=== PATIENT | female | born 1930 | race Caucasian/White ===

== ENCOUNTER 2018-05-26 17:16 | Inpatient (IN) | payer OTHER ==
--- NOTE | 2018-05-26 18:08 | PDOC ---
History of Present Illness - General Chief Complaint: Shortness of Breath Stated Complaint: SHORTNESS OF BREATH Time Seen by Provider: 05/26/18 17:27 History Source: Patient, Longterm Records Exam Limitations: No Limitations - History of Present Illness Initial Comments: 05/26/18 18:03 Pt is an 87yo f with PMH of CHF, Afib on Coumadin, HTN, HLD, Sleep Apnea, edema BIBA from [facility] for SOB. Pt says she has been feeling SOB for more than one week. She feels SOB when she takes a few steps, but feels fine at rest. She also admits to decreased appetite and loose stools. She denies chest pain, cough , fever, chills, night sweats, back pain, headache, changes in vision, abominal pain, nausea, vomiting, urinary symptoms. She has had chronic leg swelling and pt noticed it is a bit more swollen. PMD: Yesenia PMH: See hpi PSH: R knee surgery Meds: Coumadin, lasix, see med rec Allergies: amox, cipro, oxycodone Past History - Past Medical History Allergies/Adverse Reactions: Allergies Allergy/AdvReac Type Severity Reaction Status Date / Time acetaminophen [From Percocet] Allergy Verified 05/26/18 17:38 amoxicillin Allergy Verified 05/26/18 17:38 ciprofloxacin [From Cipro] Allergy Verified 05/26/18 17:38 naproxen [From Naprosyn] Allergy Verified 05/26/18 17:38 oxycodone [From Percocet] Allergy Verified 05/26/18 17:38 Cardiac Disorders: Yes (ATRIAL FIBRILLATION) COPD: No CHF: Yes HTN: Yes Hypercholesterolemia: Yes Psychiatric Problems: Yes Thyroid Disease: Yes Other medical history: HYPOKALEMIA,DEPRESSION,OBSTRUCTIVE SLEEP APNEA - Suicide/Smoking/Psychosocial Hx Smoking History: Unknown if ever smoked Hx Alcohol Use: No Drug/Substance Use Hx: No Review of Systems - Review of Systems Constitutional: Yes: Loss of Appetite, Weight Stable. No: Chills, Fever HEENTM: No: Eye Pain, Recent change in vision, Double Vision, Throat Pain Respiratory: Yes: SOB with Exertion. No: Cough, SOB at Rest, Productive cough, Hemoptysis Cardiac (ROS): Yes: Lightheadedness. No: Chest Pain, Palpitations, Syncope ABD/GI: Yes: See HPI. No: Constipated, Diarrhea, Nausea, Rectal Bleeding, Vomiting, Abdominal cramping, Tarry Stools : Yes: Frequency. No: Burning, Dysuria Musculoskeletal: No: Back Pain, Joint Pain, Muscle Pain Integumentary: Yes: Other (bilateral leg swelling). No: Dryness, Erythema, Lesions Neurological: No: Headache, Numbness, Paresthesia, Tingling, Tremors Hematologic/Lymphatic: No: Blood Clots *Physical Exam - Vital Signs Last Vital Signs Temp Pulse Resp BP Pulse Ox 97.6 F 98 H 22 H 113/66 100 05/26/18 17:38 05/26/18 17:38 05/26/18 17:38 05/26/18 17:38 05/26/18 17:46 - Physical Exam General Appearance: Yes: Nourished, Appropriately Dressed, Moderate Distress HEENT: positive: EOMI, ALYCE, Pharynx Normal. negative: Tonsillar Exudate, Nasal Congestion Neck: positive: Trachea midline, Supple. negative: Carotid bruit, Lymphadenopathy (R), Lymphadenopathy (L) Respiratory/Chest: positive: Crackles (lower lung hernandez bilaterally). negative : Lungs Clear, Normal Breath Sounds, Accessory Muscle Use, Rhonchi, Stridor, Wheezing Cardiovascular: positive: S1, S2, Irregularly Irregular. negative: Edema, JVD, Murmur Vascular Pulses: Carotid (R): 2+, Carotid (L): 2+, Dorsalis-Pedis (R): 0, Doralis-Pedis (L): 0 Gastrointestinal/Abdominal: positive: Normal Bowel Sounds, Soft. negative: Distended, Guarding, Rebound Musculoskeletal: negative: CVA Tenderness Extremity: positive: Pedal Edema (up to thigh 2+. ), Swelling, Erythema, Other ( chronic skin changes). 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 for SOB. Vitals: Selected Entries 05/26/18 05/26/18 17:38 17:46 Temperature 97.6 F Pulse Rate 98 H Respiratory 22 H Rate Blood Pressure 113/66 O2 Sat by Pulse 100 Oximetry (%) Oxygen Delivery Nasal Cannula Method Oxygen Flow 2 Rate PE: decreased breath sounds with crackles at bases. bilateral pitting edema to thigh with chronic skin changes. Irregularly irregular heart sounds. No JVD. DDx: CHF exacerbation, PE, OR, PNA, Dissection -Low suspcion for dissection (pt is normotensive, normocadic, no chest pain). Low suspicion for PE because pt is on Coumadin, will check coags to see if pt is therapeutic. High suspicion for CHF exacerbation. Will order cbc, cmp, troponin, bnp, coags, cxr, ekg. Will give 40mg Lasix IV. Pt will need admission. If labs at pt baseline, will need to consider DVT study or CTA. 05/26/18 18:35 EKG: Afib RVR. normal axis, normal QTc. No REDDY or depressions. Flatttened T in I , II, III, aVR, aVL, aVF, V6. Labs pending. 05/26/18 19:00 Pt signed out to Dr. Corral *DC/Admit/Observation/Transfer Diagnosis at time of Disposition: SOB (shortness of breath) - Discharge Dispostion Decision to Admit order: Yes - Referrals Referrals: Karely Arzola MD [Primary Care Provider] - - Patient Instructions - Post Discharge Activity
[2018-05-26] MEDS ORDERED: FUROSEMIDE 40 MG/4 ML INJECTABLE VIAL IVPUSH ONE (18:10)
--- NOTE | 2018-05-26 18:16 | PDOC ---
Attending Attestation - HPI HPI: 05/26/18 18:18 The patient is a 87 year old female, with a significant past medical history of CHF, Afib on Coumadin, HTN, HLD, Sleep Apnea, edema, who presents to the emergency department via ems from [facility] for increasing exertional dyspnea. The patient denies chest pain, headache and dizziness. The patient denies fever , chills, nausea, vomit, diarrhea and constipation. The patient denies dysuria, frequency, urgency and hematuria. - Physicial Exam PE: 05/26/18 18:18 GENERAL: Well developed, well nourished. Awake and alert. No acute distress. HEENT: (+) Poor dentition. Normocephalic, atraumatic. PERRLA, EOMI. No conjunctival pallor. Sclera are non-icteric. Moist mucous membranes. Oropharynx is clear. NECK: Supple. Full ROM. No JVD. Carotid pulses 2+ and symmetric, without bruits. No thyromegaly. No lymphadenopathy. CARDIOVASCULAR: (+) Regular rate and irregular rhythm. No murmurs, rubs, or gallops. Distal pulses are 2+ and symmetric. PULMONARY: (+) Bibasilar rales (R>L), No evidence of respiratory distress. No wheezing or rhonchi. ABDOMINAL: (+) Protuberant. Soft. Non-tender. Non-distended. No rebound or guarding. No organomegaly. Normoactive bowel sounds. MUSCULOSKELETAL Normal range of motion at all joints. No bony deformities or tenderness. No CVA tenderness. EXTREMITIES: (+) Chronic venous stasis with pitting edema up to thighs bilaterally. No cyanosis. No clubbing. No calf tenderness. SKIN: Warm and dry. Normal capillary refill. No rashes. No jaundice. NEUROLOGICAL: Alert, awake, appropriate. Cranial nerves 2-12 intact. Normoreflexic in the upper and lower extremities. Normal speech. Toes are down-going bilaterally. Gait unassessed. PSYCHIATRIC: Cooperative. Good eye contact. Appropriate mood and affect. - Medical Decision Making 05/26/18 18:20 Documentation prepared by Maria L Rodrigues, acting as medical corps officer for Nadira Argueta MD <Maria L Rodrigues - Last Filed: 05/26/18 18:18> - Resident Resident Name: Alisia Mcclelland - ED Attending Attestation I have performed the following: I have examined & evaluated the patient, The case was reviewed & discussed with the resident, I agree w/resident's findings & plan, Exceptions are as noted - Medical Decision Making Differential diagnosis includes chf, pneumonia,CAD plan ekg/cbc/trop/bnp/cxr/diuretics 05/26/18 18:38 <Nadira Argueta - Last Filed: 05/26/18 18:47>
[2018-05-26] MEDS ORDERED: FUROSEMIDE 40 MG/4 ML INJECTABLE VIAL ONE (18:22)
--- NOTE | 2018-05-26 18:53 | PDOC ---
*Physical Exam - Vital Signs Last Vital Signs Temp Pulse Resp BP Pulse Ox 97.6 F 98 H 22 H 113/66 100 05/26/18 17:38 05/26/18 17:38 05/26/18 17:38 05/26/18 17:38 05/26/18 17:46 - Physical Exam Comments: 05/26/18 18:59 Alert, drowsy but arousable General Appearance: Yes: Obese Neck: positive: Trachea midline, Supple Cardiovascular: positive: S1, S2, Irregularly Irregular Gastrointestinal/Abdominal: positive: Soft Extremity: positive: Other (B/L Chronic lymphedema changes (hard)) Neurologic: positive: Alert ED Treatment Course - LABORATORY CBC & Chemistry Diagram: 05/26/18 20:00 05/26/18 20:00 - Medications Given in the ED: ED Medications Discontinued Medications Generic Name Dose Route Start Last Admin Trade Name Freq PRN Reason Stop Dose Admin Furosemide 40 mg 05/26/18 18:10 05/26/18 18:21 Lasix Injection - IVPUSH 05/26/18 18:11 40 mg ONCE ONE Administration Medical Decision Making - Medical Decision Making 05/26/18 18:52 Patient signed out by Dr. Mcclelland (Resident) and under the care of Dr. Argueta ( Attending) 87yo f with PMH of CHF, Afib (on Warfarin), HTN, HLD, Sleep Apnea, Chronic Lymphedema BIBA from [facility] for dyspnea w/exertion and lightheadedness w// ambulation. ECG showed AFib w/RVR. Trop, Labs pending. 05/26/18 19:10 As patient remains intermittently tachy (low 100's) + likelihood sedentary lifestyle, will obtain B/L LE duplex to r/o clots 05/26/18 20:48 BNP 28,478; no previous BNP in EMR, labs + clinical presentation --> CHF exacerbation Hospitalist paged 05/26/18 21:23 Patient remains intermittently tachycardic, low 100's Reassed @ bedside, mildly tachypneic 20's Will consider BiPap as per patient tolerance if HR, RR increases 05/26/18 22:25 VSS Case d/w LOAN SERVICE OFFICER - will admit to Telemetry Duplex pending Clinical Impression: CHF Exacerbation *DC/Admit/Observation/Transfer Diagnosis at time of Disposition: SOB (shortness of breath) - Referrals - Patient Instructions - Post Discharge Activity
[2018-05-26 20:10] LABS: BASO % 0.7 % (0-2.0); EOS % 1.7 % (0-4.5); HEMATOCRIT 37.8 % (32.4-45.2); LYMPH % 21.1 % (8-40); MCH 33.3 pg (25.7-33.7); MCHC 34.4 g/dl (32.0-36.0); MEAN PLT VOLUME 10.4 fl (7.5-11.1); MONO % 19.2 % (3.8-10.2); NEUT % 57.3 % (42.8-82.8); PLATELET COUNT 146 K/MM3 (134-434); RDW 17.2 % (11.6-15.6); WHITE BLOOD COUNT 6.6 K/mm3 (4.0-10.0)
[2018-05-26 20:26] LABS: INR 3.33 (0.83-1.09); PROTHROMBIN TIME (PATIENT) 39.8 SEC (9.7-13.0)
[2018-05-26 20:28] LABS: ACTIVATED PTT 38.1 SECONDS (25.2-36.5)
[2018-05-26 20:37] LABS: ALBUMIN 3.1 g/dl (3.4-5.0); ALK PHOS 89 U/L (45-117); ANION GAP 9 MMOL/L (8-16); BILIRUBIN,TOTAL 0.7 mg/dL (0.2-1); BLOOD UREA NITROGEN 61 mg/dL (7-18); CALCIUM 8.4 mg/dL (8.5-10.1); CHLORIDE 104 mmol/L (98-107); CO2 28 mmol/L (21-32); CREATININE 1.9 mg/dL (0.55-1.3); GLUCOSE,RANDOM 93 mg/dL (74-106); N-TERMINAL BNP 28478.4 pg/ml (5-450); POTASSIUM 3.8 mmol/L (3.5-5.1); SGOT/AST 25 U/L (15-37); SGPT/ALT 24 U/L (13-61); SODIUM 141 mmol/L (136-145); TOT PROT 6.8 g/dl (6.4-8.2)
--- NOTE | 2018-05-26 22:56 | HP ---
CHIEF COMPLAINT: SOB PCP: Thai SALAS HISTORY OF PRESENT ILLNESS: This is an 87 year old female wit a significant past medical history of HTN, CHF , Afib who presented to the ED with SOB x 1 week. Pt reports that she normally sleeps with the head of the bed raised "a little" and with 2 pillows and this has not changed. She denies chest pain or palpitations. She reports chronic leg edema and states that her legs have been more swollen at times in the past. ER course was notable for: (1) BNP 28,478 (2) trop 0.09 (3) CXR with congestive changes Recent Travel: pt denies PAST MEDICAL HISTORY: HTN, HLD, Afib, CHF, sleep apnea (did not tolerate CPAP in past) PAST SURGICAL HISTORY: R TKR R cataract surgery Social History: Smoking: pt denies Alcohol: occ glass of wine Drugs: pt denies Family History: mother age 62, colon CA father in his 60s, heart problems-she is unclear if he ever had HI Allergies acetaminophen [From Percocet] Allergy (Verified 05/26/18 17:38) amoxicillin Allergy (Verified 05/26/18 17:38) ciprofloxacin [From Cipro] Allergy (Verified 05/26/18 17:38) naproxen [From Naprosyn] Allergy (Verified 05/26/18 17:38) oxycodone [From Percocet] Allergy (Verified 05/26/18 17:38) HOME MEDICATIONS: 3 Medication Instructions Recorded Acetaminophen [Tylenol] 650 mg PO BID 05/26/18 Arginine/Ascorbate Sod/Marli AC 1 packet PO BID 05/26/18 [Arginaid Powder] Atorvastatin Ca [Lipitor] 20 mg PO HS 05/26/18 Budesonide [Pulmicort 0.5 mg 0.5 mg NEB BID 05/26/18 Nebulizer -] Escitalopram Oxalate [Lexapro -] 10 mg PO DAILY 05/26/18 Famotidine [Pepcid -] 20 mg PO DAILY 05/26/18 Ipratropium/Albuterol Sulfate 1 neb IH Q6H 05/26/18 [Iprat-Albut 0.5-3(2.5) mg/3 ml] Levothyroxine Sodium [Synthroid] 88 mcg PO DAILY 05/26/18 Metolazone [Zaroxolyn -] 2.5 mg PO WEEKLY 05/26/18 Metoprolol Succinate [Toprol Xl] 100 mg PO DAILY 05/26/18 Multivitamin [Daily Multiple 1 each PO DAILY 05/26/18 Vitamin] Nystatin Cream [Mycostatin Cream -] 1 applic TD BID 05/26/18 Spironolactone 25 mg PO DAILY 05/26/18 Torsemide [Demadex] 10 mg PO DAILY 05/26/18 Triamcinolone 0.1% Ointment 1 applic TD BID 05/26/18 [Aristocort 0.1% Ointment -] Warfarin Sodium [Coumadin] 3 mg PO HS 05/26/18 REVIEW OF SYSTEMS CONSTITUTIONAL: Absent: fever, chills, diaphoresis, generalized weakness, malaise, loss of appetite, weight change HEENT: Absent: rhinorrhea, nasal congestion, throat pain, throat swelling, difficulty swallowing, mouth swelling, ear pain, eye pain, visual changes CARDIOVASCULAR: Absent: chest pain, syncope, palpitations, irregular heart rate, lightheadedness , peripheral edema RESPIRATORY: Present: shortness of breath, dyspnea with exertion Absent: cough, orthopnea, wheezing, stridor, hemoptysis GASTROINTESTINAL: Absent: abdominal pain, abdominal distension, nausea, vomiting, diarrhea, constipation, melena, hematochezia GENITOURINARY: Absent: dysuria, frequency, urgency, hesitancy, hematuria, flank pain, genital pain MUSCULOSKELETAL: Absent: myalgia, arthralgia, joint swelling, back pain, neck pain SKIN: Absent: rash, itching, pallor HEMATOLOGIC/IMMUNOLOGIC: Absent: easy bleeding, easy bruising, lymphadenopathy, frequent infections ENDOCRINE: Absent: unexplained weight gain, unexplained weight loss, heat intolerance, cold intolerance NEUROLOGIC: Absent: headache, focal weakness or paresthesias, dizziness, unsteady gait, seizure, mental status changes, bladder or bowel incontinence PSYCHIATRIC: Absent: anxiety, depression, suicidal or homicidal ideation, hallucinations. PHYSICAL EXAMINATION Vital Signs - 24 hr 3 05/26/18 05/26/18 17:38 17:46 Temperature 97.6 F Pulse Rate 98 H Respiratory 22 H Rate Blood Pressure 113/66 O2 Sat by Pulse 100 100 Oximetry (%) GENERAL: Awake, alert, and fully oriented, in no acute distress. HEAD: Normal with no signs of trauma. EYES: Pupils equal, round and reactive to light, extraocular movements intact, sclera anicteric, conjunctiva clear. No lid lag. EARS, NOSE, THROAT: Ears normal, nares patent, oropharynx clear without exudates. Moist mucous membranes. NECK: Normal range of motion, supple without lymphadenopathy, JVD, or masses. LUNGS: Crackles bilat lower lung hernandez, No wheezing, no rhonchi. No accessory muscle use. HEART: Irregular rate and rhythm, normal S1 and S2 without murmur, rub or gallop. ABDOMEN: Soft, nontender, not distended, normoactive bowel sounds, no guarding, no rebound, no masses. No hepatomegaly or splenomegaly. MUSCULOSKELETAL: Normal range of motion at all joints. No bony deformities or tenderness. No CVA tenderness. UPPER EXTREMITIES: 2+ pulses, warm, well-perfused. No cyanosis. No clubbing. No peripheral edema. LOWER EXTREMITIES: 2+ pulses, warm, well-perfused. No calf tenderness. 2-3+ pitting edema all the way through posterior thighs; chronic hypertrophic skin changes bilat lower legs, mild erythema, no excessive warmth NEUROLOGICAL: Cranial nerves II-XII intact. Normal speech. PSYCHIATRIC: Cooperative. Good eye contact. Appropriate mood and affect. SKIN: Warm, dry, normal turgor, no rashes or lesions noted, normal capillary refill. Laboratory Results - last 24 hr 3 05/26/18 05/26/18 05/26/18 20:00 20:00 20:00 WBC 6.6 RBC 3.90 Hgb 13.0 Hct 37.8 MCV 97.0 H MCH 33.3 MCHC 34.4 RDW 17.2 H Plt Count 146 MPV 10.4 Absolute Neuts (auto) 3.8 Neutrophils % 57.3 Neutrophils % (Manual) 63.0 Band Neutrophils % 2.0 Lymphocytes % 21.1 Lymphocytes % (Manual) 19.0 Monocytes % 19.2 H Monocytes % (Manual) 16 H Eosinophils % 1.7 Eosinophils % (Manual) 0.0 Basophils % 0.7 Basophils % (Manual) 0.0 Nucleated RBC % 0 PT with INR 39.80 H INR 3.33 H PTT (Actin FS) 38.1 H Sodium 141 Potassium 3.8 Chloride 104 Carbon Dioxide 28 Anion Gap 9 BUN 61 H Creatinine 1.9 H Creat Clearance w eGFR 25.06 Random Glucose 93 Calcium 8.4 L Total Bilirubin 0.7 AST 25 ALT 24 Alkaline Phosphatase 89 Troponin I 0.09 H B-Natriuretic Peptide 41815.4 H Total Protein 6.8 Albumin 3.1 L ECG Atrial fibrillation with RVR vent rate 102, QTC 482 nonspecific T wave abnormality, no acute REDDY/STD Radiology Reports chest, portable Impression : weak inspiration. Rotation to left. Congestive and infiltrative changes. Prominent mediastinum with sclerotic knob. Hiatal hernia. Follow-up recommended. Reported By: Rasheed Monroy MD 05/26/182025 ASSESSMENT/PLAN: 87yF with PMH HTN, HLD, Afib, CHF, sleep apnea presented to the ED with sob x 1 week. CHF exacerbation - good response to lasix 40mg in ED, cont same daily - cont home spironolactone - consider cardiology consult, defer to PCP - echo ordered elevated trop - likely r/t CHF exac HTN/HLD - cont home meds Afib - INR 3.3, slightly supratherapeutic, hold coumadin tonight, restart tomorrow as long as INR less than 3 - cont metoprolol for rate control SARAH - unclear baseline Cr, currently 1.9, was 1.7 yesterday at [place] - monitor while on diuretic therapy - consider renal consult DVT PPX - on coumadin FEN - hold IVF, overloaded presently, po fluids as tolerated - BMP in am - low sodium diet as tolerated Dispo: Pt currently requires further inpatient management of her emergent condition. Visit type - Emergency Visit Emergency Visit: Yes ED Registration Date: 05/26/18 Care time: The patient presented to the Emergency Department on the above date and was hospitalized for further evaluation of their emergent condition. - New Patient This patient is new to me today: Yes Date on this admission: 05/26/18 - Critical Care Critical Care patient: No
[2018-05-26] MEDS ORDERED: ALBUTEROL SO4 2.5/IPRATROPIUM 0.5 INH SOL 3 ML VIAL.NEB. NEB ONE (23:21)
[2018-05-26] MEDS: ALBUTEROL SO4 2.5/IPRATROPIUM 0.5 INH SOL 3 ML VIAL.NEB. NEB SCH (23:29)
[2018-05-27 00:07] LABS: URINE APPEARANCE CLEAR; URINE BILIRUBIN NEGATIVE (<2.0 mg/dL); URINE COLOR STRAW; URINE GLUCOSE (UA) NEGATIVE (NEGATIVE); URINE KETONE NEGATIVE (NEGATIVE); URINE LEUK ESTERASE 1+ (NEGATIVE); URINE NITRITE NEGATIVE (NEGATIVE); URINE PROTEIN NEGATIVE (NEGATIVE); URINE UROBILINOGEN NEGATIVE mg/dL (0.2-1.0)
[2018-05-27 00:36] LABS: EPI CELLS RARE /HPF (FEW); URINE HYALINE CAST 15 /lpf; URINE MUCUS RARE
[2018-05-27] MEDS: LEVOTHYROXINE NA 88 MCG TABLET (FP) PO SCH (07:07)
[2018-05-27 08:17] LABS: BASO % 0.7 % (0-2.0); EOS % 0.7 % (0-4.5); HEMATOCRIT 40.7 % (32.4-45.2); HEMOGLOBIN 13.3 GM/dL (10.7-15.3); LYMPH % 17.5 % (8-40); MCH 31.8 pg (25.7-33.7); MCHC 32.6 g/dl (32.0-36.0); MEAN CELL VOLUME 97.6 fl (80-96); MEAN PLT VOLUME 10.4 fl (7.5-11.1); MONO % 14.2 % (3.8-10.2); NEUT % 66.9 % (42.8-82.8); PLATELET COUNT 148 K/MM3 (134-434); RBC 4.17 M/mm3 (3.60-5.2); RDW 17.3 % (11.6-15.6); WHITE BLOOD COUNT 7.7 K/mm3 (4.0-10.0)
[2018-05-27 08:39] LABS: ANION GAP 9 MMOL/L (8-16); BLOOD UREA NITROGEN 60 mg/dL (7-18); CALCIUM 8.6 mg/dL (8.5-10.1); CHLORIDE 102 mmol/L (98-107); CO2 27 mmol/L (21-32); CREATININE 1.9 mg/dL (0.55-1.3); GLUCOSE,RANDOM 85 mg/dL (74-106); MAGNESIUM 2.5 mg/dL (1.8-2.4); PHOSPHOROUS 4.1 mg/dL (2.5-4.9); POTASSIUM 3.8 mmol/L (3.5-5.1); SODIUM 139 mmol/L (136-145)
[2018-05-27] MEDS ORDERED: ALBUTEROL SO4 2.5/IPRATROPIUM 0.5 INH SOL 3 ML VIAL.NEB. NEB ONE ×2 (08:46→12:04)
[2018-05-27] MEDS: ALBUTEROL SO4 2.5/IPRATROPIUM 0.5 INH SOL 3 ML VIAL.NEB. NEB SCH ×4 (08:49→21:43)
[2018-05-27] MEDS: BUDESONIDE 0.5 MG/2 ML INH SUSP VIAL NEB SCH ×2 (09:55→20:53)
[2018-05-27] MEDS: SPIRONOLACTONE 25 MG TABLET (FP) PO SCH (09:56)
[2018-05-27] MEDS: TRIAMCINOLONE ACET 0.1% OINT 15 GM TUBE TP SCH ×2 (09:56→22:38)
[2018-05-27] MEDS: FUROSEMIDE 40 MG/4 ML INJECTABLE VIAL IVPUSH SCH (09:56)
[2018-05-27] MEDS: ESCITALOPRAM OXALATE 10 MG TABLET (FP) PO SCH (09:57)
[2018-05-27] MEDS: NYSTATIN 100,000 UNIT/GM TOPICAL CREAM 15 GM TUBE TP SCH ×2 (09:57→22:39)
[2018-05-27] MEDS: RANITIDINE HCL 150 MG TABLET (FP) PO SCH (09:57)
[2018-05-27] MEDS: MULTIVITAMINS (DAILY MVI) TABLET (FP) PO SCH (09:57)
[2018-05-27] MEDS ORDERED: PATIENT'S OWN MEDICATION (NON-FORMULARY) (Arginine/Ascorbate Sod/Vite Ac [Arginaid Powder] PO SCH (10:00)
[2018-05-27] MEDS ORDERED: TORSEMIDE 10 MG TABLET PO SCH (10:00)
--- NOTE | 2018-05-27 13:03 | PN ---
Progress Note (short form) - Note Progress Note: pt in ER- examined daughter at bedside Pt feels better Vital Signs - 24 hr 05/26/18 05/26/18 05/26/18 17:38 17:46 19:45 Temperature 97.6 F Pulse Rate 98 H Pulse Rate [ Left Apical] Respiratory 22 H 22 H Rate Blood Pressure 113/66 Blood Pressure [Left Arm] O2 Sat by Pulse 100 100 100 Oximetry (%) 05/27/18 05/27/18 05/27/18 09:00 10:01 10:29 Temperature 97.6 F 97.8 F Pulse Rate 94 H Pulse Rate [ 104 H 104 H 109 H Left Apical] Respiratory 16 16 16 Rate Blood Pressure Blood Pressure 134/78 116/68 122/78 [Left Arm] O2 Sat by Pulse 97 97 98 Oximetry (%) 05/27/18 12:43 Temperature Pulse Rate Pulse Rate [ 123 H Left Apical] Respiratory 16 Rate Blood Pressure Blood Pressure 110/80 [Left Arm] O2 Sat by Pulse 100 Oximetry (%) Current Medications Generic Name Dose Route Start Last Admin Trade Name Freq PRN Reason Stop Dose Admin Albuterol/Ipratropium 1 amp 05/26/18 23:15 05/27/18 12:05 Duoneb - NEB 1 amp RQID KAPIL Administration Atorvastatin Calcium 20 mg 05/27/18 22:00 Lipitor - PO HS KAPIL Budesonide 1 amp 05/27/18 08:00 05/27/18 09:55 Pulmicort 0.5 Mg Nebulizer - NEB 1 amp RBID KAPIL Administration Escitalopram Oxalate 10 mg 05/27/18 10:00 05/27/18 09:57 Lexapro - PO 10 mg DAILY KAPIL Administration Furosemide 40 mg 05/27/18 10:00 05/27/18 09:56 Lasix Injection - IVPUSH 40 mg DAILY KAPIL Administration Levothyroxine Sodium 88 mcg 05/27/18 07:00 05/27/18 07:07 Synthroid - PO 88 mcg DAILY@0700 KAPIL Administration Metoprolol Succinate 100 mg 05/27/18 10:00 05/27/18 09:57 Toprol Xl - PO 100 mg DAILY KAPIL Administration Multivitamins/Minerals/Vitamin C 1 tab 05/27/18 10:00 05/27/18 09:57 Tab-A-Vit - PO 1 tab DAILY KAPIL Administration Nystatin 1 applic 05/27/18 10:00 05/27/18 09:57 Mycostatin Cream - TP Not Given BID [facility] Ranitidine HCl 150 mg 05/27/18 10:00 05/27/18 09:57 Zantac - PO 150 mg DAILY KAPIL Administration Spironolactone 25 mg 05/27/18 10:00 05/27/18 09:56 Aldactone - PO 25 mg DAILY KAPIL Administration Triamcinolone Acetonide 1 applic 05/27/18 10:00 05/27/18 09:56 Aristocort 0.1% Ointment - TP Not Given BID [facility] Warfarin Sodium 3 mg 05/27/18 18:00 Coumadin - PO DAILY@1800 [facility] Laboratory Results - last 24 hr 05/26/18 05/26/18 05/26/18 20:00 20:00 20:00 WBC 6.6 RBC 3.90 Hgb 13.0 Hct 37.8 MCV 97.0 H MCH 33.3 MCHC 34.4 RDW 17.2 H Plt Count 146 MPV 10.4 Absolute Neuts (auto) 3.8 Neutrophils % 57.3 Neutrophils % (Manual) 63.0 Band Neutrophils % 2.0 Lymphocytes % 21.1 Lymphocytes % (Manual) 19.0 Monocytes % 19.2 H Monocytes % (Manual) 16 H Eosinophils % 1.7 Eosinophils % (Manual) 0.0 Basophils % 0.7 Basophils % (Manual) 0.0 Nucleated RBC % 0 PT with INR 39.80 H INR 3.33 H PTT (Actin FS) 38.1 H Sodium 141 Potassium 3.8 Chloride 104 Carbon Dioxide 28 Anion Gap 9 BUN 61 H Creatinine 1.9 H Creat Clearance w eGFR 25.06 Random Glucose 93 Calcium 8.4 L Phosphorus Magnesium Total Bilirubin 0.7 AST 25 ALT 24 Alkaline Phosphatase 89 Creatine Kinase Troponin I 0.09 H B-Natriuretic Peptide 18341.4 H Total Protein 6.8 Albumin 3.1 L Urine Color Urine Appearance Urine pH Ur Specific Royal Urine Protein Urine Glucose (UA) Urine Ketones Urine Blood Urine Nitrite Urine Bilirubin Urine Urobilinogen Ur Leukocyte Esterase Urine WBC (Auto) Urine RBC (Auto) Ur Epithelial Cells Hyaline Casts Urine Mucus 05/26/18 05/27/18 05/27/18 23:20 06:00 08:00 WBC 7.7 RBC 4.17 Hgb 13.3 Hct 40.7 MCV 97.6 H MCH 31.8 MCHC 32.6 RDW 17.3 H Plt Count 148 MPV 10.4 Absolute Neuts (auto) 5.1 Neutrophils % 66.9 Neutrophils % (Manual) Band Neutrophils % Lymphocytes % 17.5 Lymphocytes % (Manual) Monocytes % 14.2 H Monocytes % (Manual) Eosinophils % 0.7 Eosinophils % (Manual) Basophils % 0.7 Basophils % (Manual) Nucleated RBC % 0 PT with INR INR PTT (Actin FS) Sodium Potassium Chloride Carbon Dioxide Anion Gap BUN Creatinine Creat Clearance w eGFR Random Glucose Calcium Phosphorus Magnesium Total Bilirubin AST ALT Alkaline Phosphatase Creatine Kinase 58 Troponin I 0.10 H B-Natriuretic Peptide Total Protein Albumin Urine Color Straw Urine Appearance Clear Urine pH 5.0 Ur Specific Royal 1.008 L Urine Protein Negative Urine Glucose (UA) Negative Urine Ketones Negative Urine Blood Negative Urine Nitrite Negative Urine Bilirubin Negative Urine Urobilinogen Negative Ur Leukocyte Esterase 1+ H Urine WBC (Auto) 6 Urine RBC (Auto) 1 Ur Epithelial Cells Rare Hyaline Casts 15 Urine Mucus Rare 05/27/18 08:00 WBC RBC Hgb Hct MCV MCH MCHC RDW Plt Count MPV Absolute Neuts (auto) Neutrophils % Neutrophils % (Manual) Band Neutrophils % Lymphocytes % Lymphocytes % (Manual) Monocytes % Monocytes % (Manual) Eosinophils % Eosinophils % (Manual) Basophils % Basophils % (Manual) Nucleated RBC % PT with INR INR PTT (Actin FS) Sodium 139 Potassium 3.8 Chloride 102 Carbon Dioxide 27 Anion Gap 9 BUN 60 H Creatinine 1.9 H Creat Clearance w eGFR 25.06 Random Glucose 85 Calcium 8.6 Phosphorus 4.1 Magnesium 2.5 H Total Bilirubin AST ALT Alkaline Phosphatase Creatine Kinase Troponin I B-Natriuretic Peptide Total Protein Albumin Urine Color Urine Appearance Urine pH Ur Specific Royal Urine Protein Urine Glucose (UA) Urine Ketones Urine Blood Urine Nitrite Urine Bilirubin Urine Urobilinogen Ur Leukocyte Esterase Urine WBC (Auto) Urine RBC (Auto) Ur Epithelial Cells Hyaline Casts Urine Mucus S1 S2 Irregular lungs decreased Abd- soft, Nt edema+c/c venous stasis dermatitis goyal+ PLAN iv lasix monitor renal function INR daily cardiology eval had rapid Afib-- rate is controlled continue with meds Problem List - Problems (1) Acute on chronic diastolic (congestive) heart failure Code(s): I50.33 - ACUTE ON CHRONIC DIASTOLIC (CONGESTIVE) HEART FAILURE (2) Anticoagulant long-term use Code(s): Z79.01 - USP (CURRENT) USE OF ANTICOAGULANTS (3) Atrial fibrillation with rapid ventricular response Code(s): I48.91 - UNSPECIFIED ATRIAL FIBRILLATION (4) Hyperlipidemia Code(s): E78.5 - HYPERLIPIDEMIA, UNSPECIFIED Qualifiers: Hyperlipidemia type: pure hypercholesterolemia Qualified Code(s): E78.00 - Pure hypercholesterolemia, unspecified; E78.0 - Pure hypercholesterolemia (5) SOB (shortness of breath) Code(s): R06.02 - SHORTNESS OF BREATH
--- NOTE | 2018-05-27 15:55 | CON.CARD ---
Consult Consult Specialty:: Cardiology Referred by:: Chanelle Hernandez MD Reason for Consultation:: CHF, rapid afib - History of Present Illness Chief Complaint: Dyspnea History of Present Illness: This is an 87 year old female wit a significant past medical history of HTN, CHF , Afib who presented to the ED with increased dyspnea without chest pain, orthopnea, PND or palpitations. She reports chronic leg edema no worse than usual. ER course was notable for: (1) BNP 28,478 (2) trop 0.09 (3) CXR with congestive changes - History Source History Provided By: Patient, Medical Record Limitations to Obtaining History: Poor Historian - Alcohol/Substance Use Hx Alcohol Use: No - Smoking History Smoking history: Unknown if ever smoked Home Medications - Allergies Allergies/Adverse Reactions: Allergies Allergy/AdvReac Type Severity Reaction Status Date / Time acetaminophen [From Percocet] Allergy Verified 05/26/18 17:38 amoxicillin Allergy Verified 05/26/18 17:38 ciprofloxacin [From Cipro] Allergy Verified 05/26/18 17:38 naproxen [From Naprosyn] Allergy Verified 05/26/18 17:38 oxycodone [From Percocet] Allergy Verified 05/26/18 17:38 - Home Medications Home Medications: Ambulatory Orders Acetaminophen [Tylenol] 650 mg PO BID 05/26/18 Arginine/Ascorbate Sod/Marli AC [Arginaid Powder] 1 packet PO BID 05/26/18 Atorvastatin Ca [Lipitor] 20 mg PO HS 05/26/18 Budesonide [Pulmicort 0.5 mg Nebulizer -] 0.5 mg NEB BID 05/26/18 Escitalopram Oxalate [Lexapro -] 10 mg PO DAILY 05/26/18 Famotidine [Pepcid -] 20 mg PO DAILY 05/26/18 Ipratropium/Albuterol Sulfate [Iprat-Albut 0.5-3(2.5) mg/3 ml] 1 neb IH Q6H 01/05 Levothyroxine Sodium [Synthroid] 88 mcg PO DAILY 05/26/18 Metolazone [Zaroxolyn -] 2.5 mg PO WEEKLY 05/26/18 Metoprolol Succinate [Toprol Xl] 100 mg PO DAILY 05/26/18 Multivitamin [Daily Multiple Vitamin] 1 each PO DAILY 05/26/18 Nystatin Cream [Mycostatin Cream -] 1 applic TD BID 05/26/18 Spironolactone 25 mg PO DAILY 05/26/18 Torsemide [Demadex] 10 mg PO DAILY 05/26/18 Triamcinolone 0.1% Ointment [Aristocort 0.1% Ointment -] 1 applic TD BID Warfarin Sodium [Coumadin] 3 mg PO HS 05/26/18 Review of Systems - Review of Systems Cardiovascular: reports: Edema, Shortness of Breath Respiratory: reports: Exercise Intolerance, SOB on Exertion Vital Signs: Vital Signs Temperature 97.6 F 05/27/18 14:29 Pulse Rate 104 H 05/27/18 14:29 Respiratory Rate 16 05/27/18 14:29 Blood Pressure 111/60 05/27/18 14:29 O2 Sat by Pulse Oximetry (%) 100 05/27/18 14:29 Constitutional: Yes: No Distress, Calm Neck: Yes: Supple Respiratory: Yes: Regular, Diminished, On Nasal O2 Gastrointestinal: Yes: Normal Bowel Sounds, Soft Cardiovascular: Yes: Tachycardia, Pulse Irregular Heart Sounds: Yes: S1, S2 Edema: Yes Edema: LLE: 1+, RLE: 1+ Integumentary: Yes: Venous Stasis Changes - Other Data Labs, Other Data: CBC, BMP 05/27/18 08:00 05/27/18 08:00 INR, PTT INR 3.33 (0.83-1.09) H 05/26/18 20:00 Troponin, BNP 05/26/18 05/27/18 05/27/18 20:00 06:00 12:40 Troponin I 0.09 H 0.10 H 0.11 H B-Natriuretic Peptide 08857.4 H 05/27/18 12:40 Troponin I B-Natriuretic Peptide 00059.5 H Troponin, BNP 05/26/18 05/27/18 05/27/18 20:00 06:00 12:40 Troponin I 0.09 H 0.10 H 0.11 H B-Natriuretic Peptide 09766.4 H 05/27/18 12:40 Troponin I B-Natriuretic Peptide 38846.5 H Rapid afib 130s Imaging - Results Chest X-ray: Report Reviewed (Radiology Reports chest, portable Impression : weak inspiration. Rotation to left. Congestive and infiltrative changes. Prominent mediastinum with sclerotic knob. Hiatal hernia. Follow-up recommended. Reported By: Rasheed Monroy MD 05/26/182025) Ultrasound: Report Reviewed (No DVT) Problem List - Problems (1) Acute on chronic diastolic (congestive) heart failure Code(s): I50.33 - ACUTE ON CHRONIC DIASTOLIC (CONGESTIVE) HEART FAILURE (2) Atrial fibrillation with rapid ventricular response Code(s): I48.91 - UNSPECIFIED ATRIAL FIBRILLATION (3) Hyperlipidemia Code(s): E78.5 - HYPERLIPIDEMIA, UNSPECIFIED Qualifiers: Hyperlipidemia type: pure hypercholesterolemia Qualified Code(s): E78.00 - Pure hypercholesterolemia, unspecified; E78.0 - Pure hypercholesterolemia (4) Anticoagulant long-term use Code(s): Z79.01 - SOFTWARE SECURITY CONSULTANT (CURRENT) USE OF ANTICOAGULANTS (5) Hypertensive cardiomyopathy Code(s): I11.9 - HYPERTENSIVE HEART DISEASE WITHOUT HEART FAILURE; I43 - CARDIOMYOPATHY IN DISEASES CLASSIFIED ELSEWHERE Qualifiers: Heart failure presence: with heart failure Qualified Code(s): I11.0 - Hypertensive heart disease with heart failure; I43 - Cardiomyopathy in diseases classified elsewhere (6) Subendocardial ischemia Code(s): I24.8 - OTHER FORMS OF ACUTE ISCHEMIC HEART DISEASE Assessment/Plan 1. Acute on chronic diastolic heart failure with subendocardial ischemia 2. Rapid atrial fibrillation [id number] on coumadin per INR 3. Acute on CKD 4. Hypertensive cardiomyopathy 5. Hyperlipidemia P:1. Continue IV diuresis and spirinolactone 25 qd with monitor diuretic response, renal fxn and electrolytes 2. Echo to assess ventricular and valve fxn 3. Continue Lipitor 20 qd, Toprol XL 100 qd, coumadin per INR 2-3. Add Cardizem IV as needed for additional rate-control 4. CATALINA-I/ARB once renal fxn stabilizes 5. Thank you for consultative opportunity
[2018-05-27 16:05] VITALS: BMI 38.4
--- NOTE | 2018-05-27 16:08 | ECHO ---
Name: ZEENAT JACKSON Exam:Adult Echocardiogram Study Date: 05/27/2018 03:19 PM Age: 87 yrs Reason For Study: CHF Height: 62 in Weight: 209 lb BSA: 1.9 m2 MMode/2D Measurements & Calculations IVSd: 0.86 cm Ao root diam: 3.2 cm LVIDd: 4.7 cm LA dimension: 4.5 cm LVIDs: 3.9 cm LVPWd: 0.82 cm EDV(Teich): 102.5 ml LVOT diam: 2.0 cm ESV(Teich): 65.1 ml RV S Porfirio: 6.4 cm/sec Doppler Measurements & Calculations MV E max porfirio: 108.8 cm/sec MVA(VTI): 1.4 cm2 MV A max porfirio: 56.3 cm/sec MV V2 max: 169.4 cm/sec MV E/A: 1.9 MV max P.5 mmHg MV dec time: 0.22 sec MV V2 mean: 108.1 cm/sec MV mean P.5 mmHg MV V2 VTI: 37.3 cm Ao V2 max: 175.4 cm/sec AI max porfirio: 325.8 cm/sec Ao max P.4 mmHg AI max P.5 mmHg Ao V2 mean: 129.9 cm/sec Ao mean P.6 mmHg AI dec slope: 218.1 cm/sec2 Ao V2 VTI: 33.3 cm ROSALIA(I,D): 1.6 cm2 AI P1/2t: 437.6 msec ROSALIA(V,D): 1.4 cm2 LV V1 max P.3 mmHg MR max porfirio: 473.0 cm/sec LV V1 mean P.1 mmHg MR max P.6 mmHg LV V1 max: 75.6 cm/sec LV V1 mean: 48.3 cm/sec LV V1 VTI: 16.3 cm SV(LVOT): 53.5 ml TR max porfirio: 225.5 cm/sec TR max P.2 mmHg PI end-d porfirio: 66.0 cm/sec Med Peak E' Porfirio: 7.1 cm/sec Med E/e': 15.4 Lat Peak E' Porfirio: 7.4 cm/sec Lat E/e': 14.8 Procedure A two-dimensional transthoracic echocardiogram with color flow and Doppler was performed. The study w as technically difficult with many images being suboptimal in quality. Left Ventricle The left ventricle is grossly normal size. Left ventricular systolic function is severely reduced. Th ere is severe global hypokinesis of the left ventricle. Regional wall motion abnormalities cannot be exclude d due to limited visualization. Right Ventricle The right ventricle is not well visualized. Atria The left atrium is moderately dilated. The right atrium is moderately dilated. Mitral Valve There is mild mitral valve thickening. There is no mitral valve stenosis. There is severe mitral regurgitation. Tricuspid Valve There is mild tricuspid valve thickening. There is no tricuspid stenosis. There is moderate tricuspid regurgitation. Right ventricular systolic pressure is elevated at 30-40mmHg. Aortic Valve The aortic valve is not well visualized. Hemodynamically significant valvular aortic stenosis cannot be excluded. Moderate aortic regurgitation. Pulmonic Valve The pulmonic valve is not well visualized. There is no pulmonic valvular stenosis. Mild pulmonic valv ular regurgitation. Great Vessels The aortic root is normal size. Pericardium/Pleura There is no pericardial effusion. Interpretation Summary There is severe mitral regurgitation. The left atrium is moderately dilated. The right atrium is moderately dilated. The left ventricle is grossly normal size. Left ventricular systolic function is severely reduced. There is severe global hypokinesis of the left ventricle. Regional wall motion abnormalities cannot be excluded due to limited visualization. The study was technically difficult with many images being suboptimal in quality. There is moderate tricuspid regurgitation. Right ventricular systolic pressure is elevated at 30-40mmHg. Moderate aortic regurgitation. MD Hema García 05/27/2018 04:07 PM
[2018-05-27] MEDS: WARFARIN NA 3 MG TABLET PO SCH (17:45)
[2018-05-27] MEDS ORDERED: dilTIAZem HCL 50 MG/10 ML - 10 ML VIAL IVPUSH PRN (17:48)
[2018-05-27] MEDS ORDERED: dilTIAZem HCL 25 MG/5 ML - 5 ML VIAL IVPUSH PRN (18:01)
[2018-05-27] MEDS: ATORVASTATIN CA 20 MG TABLET (FP) PO SCH (22:24)
[2018-05-27] MEDS ORDERED: PT OWN MED DRAWER 7, Y5N ONE (22:26)
[2018-05-28] MEDS: LEVOTHYROXINE NA 88 MCG TABLET (FP) PO SCH (06:04)
[2018-05-28 07:10] LABS: INR 2.47 (0.83-1.09); PROTHROMBIN TIME (PATIENT) 29.4 SEC (9.7-13.0)
[2018-05-28] MEDS ORDERED: PT OWN MED DRAWER 7, Y5N ONE ×5 (08:02→21:35)
[2018-05-28] MEDS: ALBUTEROL SO4 2.5/IPRATROPIUM 0.5 INH SOL 3 ML VIAL.NEB. NEB SCH ×2 (08:11→12:31)
[2018-05-28] MEDS: BUDESONIDE 0.5 MG/2 ML INH SUSP VIAL NEB SCH ×2 (08:11→20:23)
[2018-05-28] MEDS: MULTIVITAMINS (DAILY MVI) TABLET (FP) PO SCH (09:32)
[2018-05-28] MEDS: ESCITALOPRAM OXALATE 10 MG TABLET (FP) PO SCH (09:32)
[2018-05-28] MEDS: SPIRONOLACTONE 25 MG TABLET (FP) PO SCH (09:32)
[2018-05-28] MEDS: RANITIDINE HCL 150 MG TABLET (FP) PO SCH (09:32)
[2018-05-28] MEDS: FUROSEMIDE 40 MG/4 ML INJECTABLE VIAL IVPUSH SCH (09:33)
--- NOTE | 2018-05-28 10:07 | PN ---
Progress Note (short form) - Note Progress Note: pt sitting up in chair no distress feels well wants to go back to [place] Vital Signs - 24 hr 05/27/18 05/27/18 05/27/18 10:29 12:43 14:29 Temperature 97.8 F 97.6 F Pulse Rate Pulse Rate [ 109 H 123 H 104 H Left Apical] Respiratory 16 16 16 Rate Blood Pressure Blood Pressure 122/78 110/80 111/60 [Left Arm] O2 Sat by Pulse 98 100 100 Oximetry (%) 05/27/18 05/27/18 05/27/18 15:56 16:13 18:00 Temperature 98.0 F 97.3 F L Pulse Rate 78 93 H Pulse Rate [ Left Apical] Respiratory 22 H 22 H Rate Blood Pressure 118/60 113/59 L Blood Pressure [Left Arm] O2 Sat by Pulse 98 Oximetry (%) 05/27/18 05/28/18 05/28/18 20:25 02:00 05:31 Temperature 97.6 F 97.4 F L 97.5 F L Pulse Rate 98 H 100 H 96 H Pulse Rate [ Left Apical] Respiratory 20 20 20 Rate Blood Pressure 124/64 118/70 121/68 Blood Pressure [Left Arm] O2 Sat by Pulse Oximetry (%) 05/28/18 09:20 Temperature 98.1 F Pulse Rate 90 Pulse Rate [ Left Apical] Respiratory 20 Rate Blood Pressure 118/57 L Blood Pressure [Left Arm] O2 Sat by Pulse Oximetry (%) Current Medications Generic Name Dose Route Start Last Admin Trade Name Freq PRN Reason Stop Dose Admin Albuterol/Ipratropium 1 amp 05/26/18 23:15 05/28/18 08:11 Duoneb - NEB 1 amp RQID KAPIL Administration Atorvastatin Calcium 20 mg 05/27/18 22:00 05/27/18 22:24 Lipitor - PO 20 mg HS KAPIL Administration Budesonide 1 amp 05/27/18 08:00 05/28/18 08:11 Pulmicort 0.5 Mg Nebulizer - NEB 1 amp RBID KAPIL Administration Diltiazem HCl 10 mg 05/27/18 18:01 05/27/18 18:07 Cardizem Injection - IVPUSH 10 mg Q4H PRN Administration TACHYCARDIA Escitalopram Oxalate 10 mg 05/27/18 10:00 11/08/18 09:32 Lexapro - PO 10 mg DAILY KAPIL Administration Furosemide 40 mg 05/27/18 10:00 05/28/18 09:33 Lasix Injection - IVPUSH 40 mg DAILY KAPIL Administration Levothyroxine Sodium 88 mcg 05/27/18 07:00 05/28/18 06:04 Synthroid - PO 88 mcg DAILY@0700 [facility] Administration Metoprolol Succinate 100 mg 05/27/18 10:00 05/28/18 09:32 Toprol Xl - PO 100 mg DAILY KAPIL Administration Multivitamins/Minerals/Vitamin C 1 tab 05/27/18 10:00 05/28/18 09:32 Tab-A-Vit - PO 1 tab DAILY KAPIL Administration Nystatin 1 applic 05/27/18 10:00 05/27/18 22:39 Mycostatin Cream - TP 1 applic BID KAPIL Administration Ranitidine HCl 150 mg 05/27/18 10:00 05/28/18 09:32 Zantac - PO 150 mg DAILY KAPIL Administration Spironolactone 25 mg 05/27/18 10:00 05/28/18 09:32 Aldactone - PO 25 mg DAILY KAPIL Administration Triamcinolone Acetonide 1 applic 05/27/18 10:00 05/27/18 22:38 Aristocort 0.1% Ointment - TP 1 applic BID KAPIL Administration Warfarin Sodium 3 mg 05/27/18 18:00 05/27/18 17:45 Coumadin - PO Not Given DAILY@1800 [facility] Laboratory Results - last 24 hr 05/27/18 05/27/18 05/28/18 12:40 12:40 05:30 PT with INR 29.40 H INR 2.47 H Creatine Kinase 52 Troponin I 0.11 H B-Natriuretic Peptide 65783.5 H Laboratory Results - last 24 hr 05/28/18 05:30 PT with INR 29.40 H INR 2.47 H S1S2 irregular lungs decreased Abd- soft, Nt edema+c/c venous stasis dermatitis goyal+ PLAN iv lasix monitor renal function INR daily cardiology eval had rapid Afib-- rate is controlled continue with meds Problem List - Problems (1) Acute on chronic diastolic (congestive) heart failure Code(s): I50.33 - ACUTE ON CHRONIC DIASTOLIC (CONGESTIVE) HEART FAILURE (2) Anticoagulant long-term use Code(s): Z79.01 - HALF-WAY (CURRENT) USE OF ANTICOAGULANTS (3) Atrial fibrillation with rapid ventricular response Code(s): I48.91 - UNSPECIFIED ATRIAL FIBRILLATION (4) Hyperlipidemia Code(s): E78.5 - HYPERLIPIDEMIA, UNSPECIFIED Qualifiers: Hyperlipidemia type: pure hypercholesterolemia Qualified Code(s): E78.00 - Pure hypercholesterolemia, unspecified; E78.0 - Pure hypercholesterolemia (5) SOB (shortness of breath) Code(s): R06.02 - SHORTNESS OF BREATH
--- NOTE | 2018-05-28 11:11 | EKG ---
Test Reason : Blood Pressure : / mmHG Vent. Rate : 102 BPM Atrial Rate : 119 BPM P-R Int : 000 ms QRS Dur : 094 ms QT Int : 370 ms P-R-T Axes : 000 045 113 degrees QTc Int : 482 ms ATRIAL FIBRILLATION WITH RAPID VENTRICULAR RESPONSE NONSPECIFIC T WAVE ABNORMALITY ABNORMAL ECG NO PREVIOUS ECGS AVAILABLE Confirmed by THAO REYNOSO, NOLA ([id number]) on 05/28/2018 11:11:25 AM Referred By: Confirmed By:NOLA OSUNA MD
[2018-05-28] MEDS: NYSTATIN 100,000 UNIT/GM TOPICAL CREAM 15 GM TUBE TP SCH ×2 (11:24→22:09)
[2018-05-28] MEDS: TRIAMCINOLONE ACET 0.1% OINT 15 GM TUBE TP SCH ×2 (11:24→22:10)
--- NOTE | 2018-05-28 12:08 | PN ---
Progress Note, Physician History of Present Illness: Dyspnea improving with diuresis, rate-controlled afib. - Current Medication List Current Medications: Active Medications Albuterol/Ipratropium (Duoneb -) 1 amp NEB RQID [facility] Last Admin: 05/28/18 08:11 Dose: 1 amp Atorvastatin Calcium (Lipitor -) 20 mg PO HS [facility] Last Admin: 05/27/18 22:24 Dose: 20 mg Budesonide (Pulmicort 0.5 Mg Nebulizer -) 1 amp NEB RBID [facility] Last Admin: 05/28/18 08:11 Dose: 1 amp Diltiazem HCl (Cardizem Injection -) 10 mg IVPUSH Q4H PRN PRN Reason: TACHYCARDIA Last Admin: 05/27/18 18:07 Dose: 10 mg Escitalopram Oxalate (Lexapro -) 10 mg PO DAILY [facility] Last Admin: 05/28/18 09:32 Dose: 10 mg Furosemide (Lasix Injection -) 40 mg IVPUSH DAILY [facility] Last Admin: 05/28/18 09:33 Dose: 40 mg Levothyroxine Sodium (Synthroid -) 88 mcg PO DAILY@0700 [facility] Last Admin: 05/28/18 06:04 Dose: 88 mcg Metoprolol Succinate (Toprol Xl -) 100 mg PO DAILY [facility] Last Admin: 05/28/18 09:32 Dose: 100 mg Multivitamins/Minerals/Vitamin C (Tab-A-Vit -) 1 tab PO DAILY [facility] Last Admin: 05/28/18 09:32 Dose: 1 tab Nystatin (Mycostatin Cream -) 1 applic TP BID [facility] Last Admin: 05/28/18 11:24 Dose: 1 applic Ranitidine HCl (Zantac -) 150 mg PO DAILY [facility] Last Admin: 05/28/18 09:32 Dose: 150 mg Spironolactone (Aldactone -) 25 mg PO DAILY [facility] Last Admin: 05/28/18 09:32 Dose: 25 mg Triamcinolone Acetonide (Aristocort 0.1% Ointment -) 1 applic TP BID [facility] Last Admin: 05/28/18 11:24 Dose: 1 applic Warfarin Sodium (Coumadin -) 3 mg PO DAILY@1800 [facility] Last Admin: 05/27/18 17:45 Dose: Not Given - Objective Vital Signs: Vital Signs Temperature 98.1 F 11/08/18 09:20 Pulse Rate 90 05/28/18 09:20 Respiratory Rate 20 05/28/18 09:20 Blood Pressure 118/57 L 05/28/18 09:20 O2 Sat by Pulse Oximetry (%) 98 05/28/18 09:00 Constitutional: Yes: No Distress, Calm Neck: Yes: Supple Cardiovascular: Yes: Pulse Irregular, Murmur (2/6 SM) Respiratory: Yes: Regular, Diminished, On Nasal O2 Gastrointestinal: Yes: Normal Bowel Sounds, Soft Edema: Yes Edema: LLE: 1+, RLE: 1+ Integumentary: Yes: Venous Stasis Changes Labs: CBC, BMP 05/27/18 08:00 05/27/18 08:00 INR, PTT INR 2.47 (0.83-1.09) H 05/28/18 05:30 - ....Imaging EKG: Report Reviewed (Tele: Rate-controlled afib) Problem List - Problems (1) Acute on chronic diastolic (congestive) heart failure Code(s): I50.33 - ACUTE ON CHRONIC DIASTOLIC (CONGESTIVE) HEART FAILURE (2) Atrial fibrillation with rapid ventricular response Code(s): I48.91 - UNSPECIFIED ATRIAL FIBRILLATION (3) Hyperlipidemia Code(s): E78.5 - HYPERLIPIDEMIA, UNSPECIFIED Qualifiers: Hyperlipidemia type: pure hypercholesterolemia Qualified Code(s): E78.00 - Pure hypercholesterolemia, unspecified; E78.0 - Pure hypercholesterolemia (4) Anticoagulant long-term use Code(s): Z79.01 - JAIL (CURRENT) USE OF ANTICOAGULANTS (5) Hypertensive cardiomyopathy Code(s): I11.9 - HYPERTENSIVE HEART DISEASE WITHOUT HEART FAILURE; I43 - CARDIOMYOPATHY IN DISEASES CLASSIFIED ELSEWHERE Qualifiers: Heart failure presence: with heart failure Qualified Code(s): I11.0 - Hypertensive heart disease with heart failure; I43 - Cardiomyopathy in diseases classified elsewhere (6) Subendocardial ischemia Code(s): I24.8 - OTHER FORMS OF ACUTE ISCHEMIC HEART DISEASE Assessment/Plan 05/28/2018 Echo: Normal LV size with severe decreased LV fxn, mild RACHEAL, severe MR, mod TR RVSP 30-40 mmHg, mod AR, mild PA, can't exclude sig 1. Acute on chronic diastolic/systolic heart failure and severe MR with subendocardial ischemia 2. Rapid atrial fibrillation [id number] on coumadin with therapeutic INR 3. CKD 4. Hypertensive cardiomyopathy 5. Hyperlipidemia 6. Hypothyroidism P:1. Continue IV diuresis and spirinolactone 25 qd with monitor diuretic response, renal fxn and electrolytes, check TSH, lipid, Ha1c 2. Continue Lipitor 20 qd, Toprol XL 100 qd, coumadin per INR 2-3. Cardizem IV as needed for additional rate-control, minimize BD use 3. Starting Entresto / bid with uptitration as renal fxn stabilizing 4. R&LHc to establish etiology of cardiomyopathy once euvolemic
[2018-05-28] MEDS: SACUBITRIL/VALSARTAN 24 MG-26 MG TABLET PO SCH ×2 (13:30→22:09)
[2018-05-28] MEDS ORDERED: ALBUTEROL SO4 2.5/IPRATROPIUM 0.5 INH SOL 3 ML VIAL.NEB. NEB PRN (15:45)
[2018-05-28] MEDS: WARFARIN NA 3 MG TABLET PO SCH (17:13)
[2018-05-28] MEDS: ATORVASTATIN CA 20 MG TABLET (FP) PO SCH (22:08)
[2018-05-29] MEDS: LEVOTHYROXINE NA 88 MCG TABLET (FP) PO SCH (06:23)
[2018-05-29] MEDS: BUDESONIDE 0.5 MG/2 ML INH SUSP VIAL NEB SCH (07:44)
[2018-05-29 07:49] LABS: CHOLESTEROL 88 mg/dL (50-200); HDL CHOLESTEROL 29 mg/dL (40-60); TRIGLYCERIDES 79 mg/dL (0-150)
[2018-05-29 08:05] LABS: ANION GAP 7 MMOL/L (8-16); BLOOD UREA NITROGEN 50 mg/dL (7-18); CHLORIDE 101 mmol/L (98-107); CO2 33 mmol/L (21-32); CREATININE 1.5 mg/dL (0.55-1.3); GLUCOSE,RANDOM 70 mg/dL (74-106); POTASSIUM 3.4 mmol/L (3.5-5.1); SODIUM 141 mmol/L (136-145)
[2018-05-29 08:32] LABS: INR 2.02 (0.83-1.09)
[2018-05-29] MEDS ORDERED: PT OWN MED DRAWER 7, Y5N ONE (09:37)
--- NOTE | 2018-05-29 10:36 | PN ---
Progress Note, Physician History of Present Illness: Dyspnea improving with diuresis, rate-controlled afib. - Current Medication List Current Medications: Active Medications Albuterol/Ipratropium (Duoneb -) 1 amp NEB Q6H PRN PRN Reason: SHORTNESS OF BREATH Atorvastatin Calcium (Lipitor -) 20 mg PO HS [facility] Last Admin: 05/28/18 22:08 Dose: 20 mg Budesonide (Pulmicort 0.5 Mg Nebulizer -) 1 amp NEB RBID [facility] Last Admin: 05/29/18 07:44 Dose: 1 amp Diltiazem HCl (Cardizem Injection -) 10 mg IVPUSH Q4H PRN PRN Reason: TACHYCARDIA Last Admin: 05/27/18 18:07 Dose: 10 mg Escitalopram Oxalate (Lexapro -) 10 mg PO DAILY [facility] Last Admin: 05/28/18 09:32 Dose: 10 mg Furosemide (Lasix Injection -) 40 mg IVPUSH DAILY [facility] Last Admin: 05/28/18 09:33 Dose: 40 mg Levothyroxine Sodium (Synthroid -) 88 mcg PO DAILY@0700 [facility] Last Admin: 05/29/18 06:23 Dose: 88 mcg Metoprolol Succinate (Toprol Xl -) 100 mg PO DAILY [facility] Last Admin: 05/28/18 09:32 Dose: 100 mg Multivitamins/Minerals/Vitamin C (Tab-A-Vit -) 1 tab PO DAILY [facility] Last Admin: 05/28/18 09:32 Dose: 1 tab Nystatin (Mycostatin Cream -) 1 applic TP BID [facility] Last Admin: 05/28/18 22:09 Dose: 1 applic Ranitidine HCl (Zantac -) 150 mg PO DAILY [facility] Last Admin: 05/28/18 09:32 Dose: 150 mg Sacubitril/Valsartan (Entresto 24 Mg-26 Mg Tablet) 1 tab PO BID [facility] Last Admin: 05/28/18 22:09 Dose: 1 tab Spironolactone (Aldactone -) 25 mg PO DAILY [facility] Last Admin: 05/28/18 09:32 Dose: 25 mg Triamcinolone Acetonide (Aristocort 0.1% Ointment -) 1 applic TP BID [facility] Last Admin: 05/28/18 22:10 Dose: 1 applic Warfarin Sodium (Coumadin -) 3 mg PO DAILY@1800 [facility] Last Admin: 05/28/18 17:13 Dose: 3 mg - Objective Vital Signs: Vital Signs Temperature 97.2 F L 05/29/18 02:00 Pulse Rate 93 H 05/29/18 06:00 Respiratory Rate 20 05/29/18 06:00 Blood Pressure 92/56 L 05/29/18 06:00 O2 Sat by Pulse Oximetry (%) 99 05/28/18 21:00 Constitutional: Yes: No Distress, Calm Neck: Yes: Supple Cardiovascular: Yes: Pulse Irregular, Murmur (2/6 SM) Respiratory: Yes: Regular, Diminished, On Nasal O2 Gastrointestinal: Yes: Normal Bowel Sounds, Soft Edema: Yes Edema: LLE: 1+, RLE: 1+ Integumentary: Yes: Venous Stasis Changes Labs: CBC, BMP 05/27/18 08:00 05/29/18 05:30 INR, PTT INR 2.02 (0.83-1.09) H 05/29/18 05:30 - ....Imaging EKG: Report Reviewed (Tele: Rate-controlled afib) Problem List - Problems (1) Acute on chronic diastolic (congestive) heart failure Code(s): I50.33 - ACUTE ON CHRONIC DIASTOLIC (CONGESTIVE) HEART FAILURE (2) Atrial fibrillation with rapid ventricular response Code(s): I48.91 - UNSPECIFIED ATRIAL FIBRILLATION (3) Hyperlipidemia Code(s): E78.5 - HYPERLIPIDEMIA, UNSPECIFIED Qualifiers: Hyperlipidemia type: pure hypercholesterolemia Qualified Code(s): E78.00 - Pure hypercholesterolemia, unspecified; E78.0 - Pure hypercholesterolemia (4) Anticoagulant long-term use Code(s): Z79.01 - FRONT END DEVELOPER DESIGNER (CURRENT) USE OF ANTICOAGULANTS (5) Hypertensive cardiomyopathy Code(s): I11.9 - HYPERTENSIVE HEART DISEASE WITHOUT HEART FAILURE; I43 - CARDIOMYOPATHY IN DISEASES CLASSIFIED ELSEWHERE Qualifiers: Heart failure presence: with heart failure Qualified Code(s): I11.0 - Hypertensive heart disease with heart failure; I43 - Cardiomyopathy in diseases classified elsewhere (6) Subendocardial ischemia Code(s): I24.8 - OTHER FORMS OF ACUTE ISCHEMIC HEART DISEASE Assessment/Plan 05/28/2018 Echo: Normal LV size with severe decreased LV fxn, mild RACHEAL, severe MR, mod TR RVSP 30-40 mmHg, mod AR, mild MS, can't exclude sig 1. Acute on chronic diastolic/systolic heart failure and severe MR with subendocardial ischemia resolving 2. Rapid atrial fibrillation [id number] on coumadin with therapeutic INR 3. Acute on CKD improving 4. Hypertensive cardiomyopathy 5. Hyperlipidemia 6. Hypothyroidism P:1. Change to Lasix 20 po qd and spirinolactone 25 qd with monitor diuretic response, renal fxn and electrolytes 2. Continue Lipitor 20 qd, Toprol XL 100 qd, coumadin per INR 2-3, minimize BD use 3. Starting Entresto 26/26 bid with uptitration as renal fxn stabilizing 4. R&LHc to establish etiology of cardiomyopathy once euvolemic, may be scheduled as outpatient, she is to see us in office for f/u
[2018-05-29] MEDS: MULTIVITAMINS (DAILY MVI) TABLET (FP) PO SCH (10:49)
[2018-05-29] MEDS: ESCITALOPRAM OXALATE 10 MG TABLET (FP) PO SCH (10:49)
[2018-05-29] MEDS: RANITIDINE HCL 150 MG TABLET (FP) PO SCH (10:50)
[2018-05-29] MEDS: TRIAMCINOLONE ACET 0.1% OINT 15 GM TUBE TP SCH (10:50)
[2018-05-29] MEDS: NYSTATIN 100,000 UNIT/GM TOPICAL CREAM 15 GM TUBE TP SCH (10:50)
[2018-05-29] MEDS ORDERED: POTASSIUM CHLORIDE ORAL LIQUID 20 MEQ/15 ML PO ONE (10:59)
--- NOTE | 2018-05-29 11:09 | DS ---
Physical Examination Vital Signs: Vital Signs Temperature 98 F 05/29/18 10:00 Pulse Rate 98 H 05/29/18 10:00 Respiratory Rate 20 05/29/18 10:00 Blood Pressure 88/49 L 05/29/18 10:00 O2 Sat by Pulse Oximetry (%) 99 05/29/18 09:00 Findings/Remarks: pt seen/ examined in tele. chart reviewed. sitting in chair feels much better denies cp/sob says 100 percent better wants to go back to [facility] Constitutional: Yes: No Distress, Calm Eyes: Yes: Conjunctiva Clear Neck: Yes: Supple Cardiovascular: Yes: Pulse Irregular Respiratory: Yes: Diminished Gastrointestinal: Yes: Soft Edema: LLE: Trace, RLE: Trace Neurological: Yes: Alert Psychiatric: Yes: Alert Labs: CBC, BMP 05/27/18 08:00 05/29/18 05:30 Discharge Summary Reason For Visit: ACUTE ON CHRONIC CONGESTIVE HEART FAILURE Current Active Problems Acute on chronic diastolic (congestive) heart failure (Acute) Anticoagulant long-term use (Acute) Atrial fibrillation with rapid ventricular response (Acute) Hyperlipidemia (Acute) Hypertensive cardiomyopathy (Acute) SOB (shortness of breath) (Acute) Subendocardial ischemia (Acute) Hospital Course: This is an 87 year old female wit a significant past medical history of HTN, CHF , Afib who presented to the ED with SOB x 1 week. Pt admitted to tele for chf exac treated with i/v lasix echo- severe lv dys function better started on entresto stable for d/c to detention meds adjusted/ reconcilled discussed in detail with handmade tile artist Dr. Peterson pt need to follow with handmade tile artist as out pt Discussed with pts private pmd also as well as professor of social work D/c time 35 min in examining/documenting and coordating care Discussed with nursing staff also Condition: Improved - Instructions Referrals: Karely Arzola MD [Primary Care Provider] - Disposition: HOME - Home Medications Comprehensive Discharge Medication List: Ambulatory Orders Arginine/Ascorbate Sod/Marli AC [Arginaid Powder] 1 packet PO BID 05/26/18 Atorvastatin Ca [Lipitor] 20 mg PO HS 05/26/18 Budesonide [Pulmicort 0.5 mg Nebulizer -] 0.5 mg NEB BID 05/26/18 Escitalopram Oxalate [Lexapro -] 10 mg PO DAILY 05/26/18 Ipratropium/Albuterol Sulfate [Iprat-Albut 0.5-3(2.5) mg/3 ml] 1 neb IH Q6H 01/05 Levothyroxine Sodium [Synthroid] 88 mcg PO DAILY 05/26/18 Metoprolol Succinate [Toprol Xl] 100 mg PO DAILY 05/26/18 Multivitamin [Daily Multiple Vitamin] 1 each PO DAILY 05/26/18 Nystatin Cream [Mycostatin Cream -] 1 applic TD BID 05/26/18 Spironolactone 25 mg PO DAILY 05/26/18 Triamcinolone 0.1% Ointment [Aristocort 0.1% Ointment -] 1 applic TD BID Warfarin Sodium [Coumadin] 3 mg PO HS 05/26/18 Albuterol 2.5/Ipratropium 0.5 [Duoneb -] 1 amp NEB Q6H PRN amp 05/29/18 Furosemide [Lasix -] 20 mg PO DAILY tablet 05/29/18 Ranitidine [Zantac -] 150 mg PO DAILY tablet 05/29/18 Sacubitril/Valsartan [Entresto 24 mg-26 mg Tablet] 1 tab PO BID tablet
[2018-05-29 14:03] VITALS: BP 89/52; PULSE 109; TEMP 98.5
[2018-05-29] MEDS: SACUBITRIL/VALSARTAN 24 MG-26 MG TABLET PO SCH (15:13)
[2018-05-29] MEDS: SPIRONOLACTONE 25 MG TABLET (FP) PO SCH (15:17)
[2018-05-29] MEDS: FUROSEMIDE 40 MG/4 ML INJECTABLE VIAL IVPUSH SCH (15:31)
[2018-05-29] MEDS: WARFARIN NA 3 MG TABLET PO SCH (17:30)
[2018-05-30] MEDS ORDERED: FUROSEMIDE 20 MG TABLET (FP) PO SCH (10:00)
== END 2018-05-29 19:40 | DRG 291 ==
LOC: JER 17:16 → JERBED 21:16 → J4W 05-27 14:51
PROVIDERS: ADMIT Internal Medicine; ATTEND Internal Medicine
DX: I13.0 Hypertensive heart and chronic kidney disease with heart failure and stage 1 through stage 4 chronic kidney disease, or unspecified chronic kidney disease (principal); I50.43 Acute on chronic combined systolic (congestive) and diastolic (congestive) heart failure; I24.8 Other forms of acute ischemic heart disease; N17.9 Acute kidney failure, unspecified; I25.5 Ischemic cardiomyopathy; N18.9 Chronic kidney disease, unspecified; I34.0 Nonrheumatic mitral (valve) insufficiency; I48.91 Unspecified atrial fibrillation; E78.5 Hyperlipidemia, unspecified; E03.9 Hypothyroidism, unspecified; Z79.01 Long term (current) use of anticoagulants; G47.30 Sleep apnea, unspecified; E87.6 Hypokalemia; I25.10 Atherosclerotic heart disease of native coronary artery without angina pectoris; E66.9 Obesity, unspecified; Z68.37 Body mass index [BMI] 37.0-37.9, adult
CPT/HCPCS: 36415; 71045-TC-FY; 80048; 80053; 80061; 81003; 81015; 82550; 83036; 83721; 83735; 83880; 84100; 84443; 84484; 85025; 85610; 85730; 87086; 93005; 93010; 93306-TC; 93970-TC; 94640; 97116-GP; 97162-GP; 99285-25